=== PATIENT | female | born 1945 | race Caucasian/White ===

== ENCOUNTER 2017-03-07 14:26 | Inpatient (IN) | payer MEDICARE, MEDICAID ==
[2017-03-07 14:39] VITALS: BP 116/86
[2017-03-07] MEDS ORDERED: Sodium Chloride 0.9% 1,000 ML IV ONE ×2 (15:04→15:24)
[2017-03-07] MEDS ORDERED: HYDROmorphone 1 mg/mL 1mL Syr IVP STA (15:05)
--- NOTE | 2017-03-07 15:06 | ED Physician Chart ---
Chief Complaint/HPI - Patient Information Date Seen:: 03/07/17 Time Seen:: 14:42 Chief Complaint:: ABDOMINAL PAIN IN RLQ SINCE LAST NIGHT History of Present Illness:: The patient is unable to recall that the pain started abruptly or gradually last evening. She describes the pain as cramping and gives it a severity of 4/ 10. The pain is worse when she is moved and better when she is lying still. Patient is status post appendectomy. she localizes the pain to the suprapubic and right lower quadrant regions. There is no radiation of the pain into the chest or back. The pain is accompanied by nausea but she has had no episodes of vomiting or diarrhea. Patient denies any fever, chills or diaphoresis. The patient was able to walk with the assistance of a walker up until 3 days ago. Since then. she is currently nonambulatory. She denied any urinary symptoms. NO unusual vaginal bleeding. Allergies:: Allergies Allergy/AdvReac Type Severity Reaction Status Date / Time codeine AdvReac Verified 03/07/17 14:35 Vitals:: Vital Signs - 8 hr 03/07/17 14:38 BP 116/86 Review of Systems - Review of Systems General/Constitutional: No fever, No chills, No diaphoresis, No edema Skin: No skin lesions, No rash Head: No headache, No light-headedness Eyes: No loss of vision, No diplopia ENT: No earache, No sore throat Neck: No neck pain, No stiffness, No mass noted Cardio Vascular: No chest pain, No palpitations, No edema Pulmonary: No SOB, No cough, No sputum, No wheezing, Other (patient states that she has supplemental oxygen at home.) GI: Nausea, No vomiting, No diarrhea, Pain, No constipation, No hematemesis G/U: No dysuria, No frequency, No hematuria General Scrap 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 History of prior IV drug abuse and has been clean for over 20 years.), No Alcohol, Care Facility Surgical History: Appendectomy, other ( the patient had an ectopic with removal of the fallopian tube on the right side.) Family Medical History - Family Member Mother History Unknown: Yes Ethnicity: Non- Hx Family COPD: Yes Sister History Unknown: Yes Ethnicity: Non- Physical Exam - Physical Examination General/Constitutional: Awake, Well-developed, well-nourished, Alert, Non-toxic appearing Other Gen/Cons comments:: Patient was in moderate distress from pain in the lower abdomen which localized to the right side. Patient has been nonambulatory for the past three days. Head: Atraumatic Other Head comments:: No visible or palpable evidence of recent trauma. Eyes: Lids, conjuctiva normal, PERRL, EOMI Other Eyes comments:: Prominent arcus both eyes. Skin: Nl inspection, No rash, No skin lesions, No ecchymosis, No lymphadenopathy ENMT: External ears, nose nl Other ENMT comments:: the patient was missing her lower incisor teeth. No inflammation of the posterior pharynx and normal tonsils. Neck: Nontender, No JVD, No nuchal rigidity, No mass, No stridor Respiratory: Nl effort/Exclusion Other Respiratory comments:: The patient has scattered wheezes and rhonchi. No arousal auscultated. Cardio Vascular: RRR, No murmur, gallop, rubs, NL S1 S2 Other Cardio Vascular comments:: Good pulses in all four extremities. GI: No organomegaly, No hernia, Nondistended, No mass/bruits ( The patient had moderate to severe tenderness in the suprapubic and right lower quadrant region. Positive rebounding guarding. Bowel sounds were decreased but present. The rectal examination was deferred at my discretion.) : No CVA tenderness Extremities: No tenderness or effusion, Full ROM ( are the patient had poor clinical lab specialist and both upper extremities and was unable to lift either leg off the gurney. Sensation was intact to light touch.) Neuro/Psych: Alert/oriented, Normal sensory exam Other Neuro/Psych comments:: Cranial nerves are grossly intact. The patient had generalized weakness with no focal deficits. As mentioned previously, the patient had been nonambulatory for the past three days. Misc: Normal back, No paraspinal tenderness Labs/Radiology/EKG Results - Lab Results Results: Laboratory Tests 03/07/17 03/07/17 03/08/17 15:41 17:28 06:05 WBC 10.2 9.9 RBC 3.87 3.68 L Hgb 12.0 11.5 L Hct 35.2 33.8 L MCV 90.7 91.9 MCH 30.9 31.2 H MCHC Differential 34.0 33.9 RDW 13.1 13.1 Plt Count 254 221 MPV 6.5 7.3 Neutrophils % 76.6 Band Neutrophils % 3 Lymphocytes % 14.7 L Monocytes % 8.0 Eosinophils % 0.4 Basophils % 0.3 Neutrophils (Manual) 55 Lymphocytes 30 Monocytes 12 H Platelet Estimate ADEQUATE ESR Sodium 134 L Potassium 4.7 Chloride 103 Carbon Dioxide 25.5 Anion Gap 10.2 BUN 22 Creatinine 0.8 Est GFR ( Amer) > 60.0 Est GFR (Non-Af Amer) > 60.0 BUN/Creatinine Ratio 27.5 Glucose 128 H Calcium 9.3 Total Bilirubin 0.4 AST 21 ALT 12 Alkaline Phosphatase 99 Total Protein 7.6 Albumin 3.5 L Globulin 4.1 Albumin/Globulin Ratio 0.9 L 03/08/17 03/08/17 06:05 06:05 WBC RBC Hgb Hct MCV MCH MCHC Differential RDW Plt Count MPV Neutrophils % Band Neutrophils % Lymphocytes % Monocytes % Eosinophils % Basophils % Neutrophils (Manual) Lymphocytes Monocytes Platelet Estimate ESR 19 Sodium 134 L Potassium 4.7 Chloride 107 Carbon Dioxide 24.9 Anion Gap 6.8 L BUN 34 H Creatinine 1.3 H Est GFR ( Amer) 52.2 Est GFR (Non-Af Amer) 43.2 BUN/Creatinine Ratio 26.2 Glucose 113 H Calcium 8.8 Total Bilirubin 0.5 AST 18 ALT 8 Alkaline Phosphatase 80 Total Protein 6.3 Albumin 3.0 L Globulin 3.3 Albumin/Globulin Ratio 0.9 L The CBC was unremarkable with no leukocytosis or left shift. The hemoglobin was in the 12 range. There is mild impairment of renal function. Patient had a low albumin to globulin ratio. showed that the patient had a fecal impaction in the SQL region. This explained the right lower quadrant tenderness and pain.CT scan of the abdomen Assessment - Assessment General Assessment: CASE SUMMARY: the 71-year-old female presented with onset of right lower quadrant abdominal pain and generalized weakness. Laboratory studies are essentially unremarkable. A CT scan of the abdomen revealed that the patient had a fecal infection in the cecum. The case was discussed with Dr. Soto and he will admit her for further diagnostic evaluation and treatment as indicated. MDM: DDX FOR RT LOWER ABDOMINAL PAIN: NOT acute Appendicitis based on the patient's history of having had an appendectomy. NOT Diverticulitis based on the CT scan of the abdomen. NOT Mesenteric ischemia based on the CT scan. NOT Aortic aneurysm based on the history, physical examination, and CT results. ED Septic Shock - . Is Septic Shock (SBP<90, OR Lactate>4 mmol\L) present?: No - <6hrs of presentation: Vital Signs: Vital Signs - 8 hr 03/07/17 14:38 BP 116/86 Reassessment (Disposition) - Reassessment Reassessment Condition:: Improved - Diagnosis Diagnosis:: DIAGNOSIS: 1) FECAL IMPACTION OF THE CECUM. 2)COPD 3) Hepatitis C - Aftercare/Follow up Instructions Aftercare/Follow-Up Instructions:: Counseled pt regarding lab results/diagnosis & need follow up - Patient Disposition Discharge/Transfer:: Acute Care w/in this hosp Accepting Physician:: Dr. Sharpe ED Discharge Plan - Patient Disposition Admit/Discharge/Transfer: Acute Care w/in this hosp
[2017-03-07] MEDS ORDERED: HYDROmorphone 1 mg/mL 1mL Syr ONE (15:44)
[2017-03-07 16:06] LABS: ALB/GLOB RATIO 0.9 (1.0-1.8); ALKALINE PHOSPHATASE 99 U/L (34-104); ANION GAP 10.2 (7.0-16.0); BILIRUBIN,TOTAL 0.4 mg/dL (0.3-1.0); BUN - UREA NITROGEN 22 mg/dL (7-25); BUN/CREATININE RATIO 27.5; CALCIUM SERUM 9.3 mg/dL (8.6-10.3); CARBON DIOXIDE 25.5 mEq/L (21.0-31.0); CHLORIDE 103 mEq/L (98-107); CREATININE - SERUM 0.8 mg/dL (0.6-1.2); GLUCOSE 128 mg/dL (70-105); POTASSIUM SERUM 4.7 mEq/L (3.5-5.1); SGOT 21 U/L (13-39); SGPT/ALT 12 U/L (7-52); SODIUM SERUM 134 mEq/L (136-145)
[2017-03-07 17:35] LABS: % BASOPHILS 0.3 % (0.0-2.0); % EOSINOPHILS 0.4 % (0.0-5.0); % LYMPHOCYTES 14.7 % (20.0-50.0); % NEUTROPHILS 76.6 % (40.0-80.0); HEMATOCRIT 35.2 % (35.0-45.0); MEAN CELL VOLUME 90.7 fl (81-100); MEAN CORPUSCULAR HEMOGLOBIN 30.9 pg (27.0-31.0); MEAN PLATELET VOLUME 6.5 fl; NEUTROPHILE ABSOLUTE 7.9 Th/cmm (1.8-8.0); PLATELET COUNT 254 Th/cmm (150-400); RED BLOOD COUNT 3.87 Mil/cmm (3.80-5.20); RED CELL DISTRIBUTION WIDTH 13.1 % (11.5-20.0); WHITE BLOOD COUNT 10.2 Th/cmm (4.8-10.8)
[2017-03-07] MEDS ORDERED: HYDROmorphone 1 mg/mL 1mL Syr IVP PRN (21:17)
[2017-03-07] MEDS ORDERED: D5-0.45NS 1,000 ML IV SCH (21:17)
[2017-03-08 06:28] LABS: HEMATOCRIT 33.8 % (35.0-45.0)
[2017-03-08] MEDS ORDERED: D5-0.9%NS 1,000 ML IV SCH ×2 (06:45→12:32)
[2017-03-08 06:49] LABS: HEMOGLOBIN 11.5 gm/dL (11.7-16.1); MEAN CELL VOLUME 91.9 fl (81-100); MEAN CORPUSCULAR HEMOGLOBIN 31.2 pg (27.0-31.0); MEAN CORPUSCULAR HGB CONC 33.9 pg (28.0-36.0); MEAN PLATELET VOLUME 7.3 fl; PLATELET COUNT 221 Th/cmm (150-400); RED BLOOD COUNT 3.68 Mil/cmm (3.80-5.20); RED CELL DISTRIBUTION WIDTH 13.1 % (11.5-20.0); WHITE BLOOD COUNT 9.9 Th/cmm (4.8-10.8)
[2017-03-08 06:54] LABS: ALB/GLOB RATIO 0.9 (1.0-1.8); ANION GAP 6.8 (7.0-16.0); BILIRUBIN,TOTAL 0.5 mg/dL (0.3-1.0); BUN/CREATININE RATIO 26.2; CALCIUM SERUM 8.8 mg/dL (8.6-10.3); CARBON DIOXIDE 24.9 mEq/L (21.0-31.0); CREATININE - SERUM 1.3 mg/dL (0.6-1.2); POTASSIUM SERUM 4.7 mEq/L (3.5-5.1)
[2017-03-08 07:36] LABS: BAND NEUTROPHILE 3 % (0-10); NEUTROPHILS 55 % (40-80); PLATELET ESTIMATE ADEQUATE (NORMAL); TOTAL CELLS COUNTED 100
[2017-03-08] MEDS ORDERED: Hydrocodone/APAP 5mg/325mg Tab PO PRN (08:21)
--- NOTE | 2017-03-08 09:00 | Diagnostic Imaging Report ---
INDICATION: Abdominal pain FINDINGS: The bowel gas pattern is unremarkable. No abnormal masses or calcifications. IMPRESSION: Unremarkable exam. Fecal loading.
[2017-03-08] MEDS: Lactulose 10 Gm/15 mL 30mL UDC PO SCH ×3 (09:14→20:58)
--- NOTE | 2017-03-08 09:21 | Diagnostic Imaging Report ---
INDICATION: Pain Technique: Serial axial images were performed through the abdomen and pelvis and then reformatted in the coronal plane. CTDI is 10.2mGy. [id number] FINDINGS: There is some parenchymal disease in left lung base. Liver and spleen are normal in size without focal mass. Several nonobstructive right renal calculi are present largest of which measures 4 5-mm. No masses or enlargement of the adrenal glands or pancreas. No biliary dilatation. Gallbladder no stones No distention of small bowel loops. Fecal distention of the cecum. The appendix appears normal. Within the pelvis bladder is smooth walled without stones. No abnormal masses or fluid collections. Bone windows show no lytic or blastic lesions of bone. IMPRESSION: Left lower lobe parenchymal disease. Multiple nonobstructive right renal calculi.
--- NOTE | 2017-03-08 10:55 | History & Physical ---
ADMIT DATE: 03/07/2017 CHIEF COMPLAINT: Right lower quadrant abdominal pain. HISTORY OF PRESENT ILLNESS: This is a 71-year-old female who presents to [facility] ER for right lower quadrant abdominal pain, rating was 4/10, which started the night before last, complaining of suprapubic pain along with right lower quadrant pain, no radiation, but does admit to nausea, no vomiting or diarrhea. No fever or chills. No diaphoresis. PAST MEDICAL HISTORY: Includes COPD, asthma, rheumatoid arthritis, osteoarthritis of the right and left knee, hypertension, schizophrenia, neuropathy, depression and anxiety. While in the ER, the patient had a CT of her abdomen, which revealed fecal impaction at the cecal region. The patient was subsequently admitted for further evaluation and treatment. She was given initially a pain medication in the ER, which helped relieve the pain. Her initial lab work revealed a hemoglobin of 12.0, hematocrit 35.2, platelets normal at 254, white count was normal at 10.2. Chem-7, sodium 134, slightly decreased, potassium 4.7, chloride 103, bicarbonate 25, BUN 22, creatinine 0.8, glucose 128. REVIEW OF SYSTEMS: Essentially negative with the exception of the above complaints. PHYSICAL EXAMINATION: VITAL SIGNS: Temperature 98.2, pulse ____, respiration 18, blood pressure 99/54. GENERAL: This is a 71-year-old female, well developed, well nourished, appears her stated age. HEENT: Normocephalic, atraumatic. Pupils equal, round, reactive to light and accommodation. Extraocular muscles intact. Ears: TMs intact. NECK: Supple. Good range of motion. No thyromegaly, no lymphadenopathy. CARDIOVASCULAR: Regular rate and rhythm. No murmurs, rubs or clicks. LUNGS: Clear to auscultation. No rales, rhonchi or wheezing. ABDOMEN: Right lower quadrant abdominal pain noted. Bowel sounds are decreased. EXTREMITIES: No clubbing, cyanosis or edema. Pedal pulses intact. ASSESSMENT: 1. Abdominal pain. 2. Fecal impaction at the cecum noted on CT scan. 3. Chronic obstructive pulmonary disease. 4. Asthma. 5. Bilateral interstitial lung disease. 6. Rheumatoid arthritis of the right and left knee. 7. Osteoarthritis. 8. Schizophrenia. 9. Depression. 10. Anxiety disorder. PLAN: We will order GI consult with Dr. Houston. Repeat CBC and Chem-7 for tomorrow. The patient was started on stool softeners. We will continue patient n.p.o. for now, IV fluids, D5 normal saline at 75 mL per hour. JOB# [id number]
[2017-03-08] MEDS ORDERED: Sodium Chloride 0.9% 1,000 ML IV SCH ×2 (12:30→20:30)
[2017-03-08] MEDS: Morphine Sulfate 2 mg/mL 1mL Syr IVP PRN (20:55)
[2017-03-08] MEDS ORDERED: Non-Formulary Item 1 EA (Melatonin [Melatonin] 5 MG) PO SCH (21:00)
--- NOTE | 2017-03-09 02:49 | Admit Criteria Form ---
Admit Criteria Forms - Admit Criteria Diagnosis: ABDOMINAL PAIN Clinical Indications for Admission to Inpatient Care (Place 'X' for any and all applicable criteria): Admission is indicated for ANY ONE of the following(1)(2)(3)(4)(5): [X ]I. Inpatient admission required rather than observation care (Also use Abdominal Pain: Observation Care, as appropriate) because of ANY ONE of the following: [ ]a) Severe pain requiring acute inpatient management [ ]b) Identification of etiology/finding that requires inpatient care (eg, aortic dissection, free air) [ ]c) Absent bowel sounds with complete ileus(6) [ ]d) Suspected toxic megacolon [ ]e) Severe electrolyte abnormalities requiring inpatient care [ ]f) High fever or infection requiring inpatient admission as indicated by ANY ONE of following(7)(8): [ ] i) Appropriate outpatient or observational care antimicrobial treatment unavailable, not effective, or not feasible [ ] ii) Documented bacteremia [ ] iii) Temperature > 104.9 degrees F (oral) [ ] iv) T >103.1 F (oral) or < 96.8 F(rectal) that does not respond to all emergency treatment measures [ ]g) Signs of intestinal obstruction [B] [ ]h) Hemodynamic instability [ ]i) IV fluid to replace significant ongoing losses (greater than 3 L/m2 per day) (12)(13) [ ]j) Percutaneous or open drainage (eg, abscess, biliary tract ) procedures [ ]k) Parenteral nutrition regimen that must be implemented on inpatient basis [X ]l) Other condition,treatment or monitoring requiring inpatient admission. [ ]II. Peritoneal signs present [ ]III. Surgery needed that cannot be performed on an ambulatory basis. [ ]IV. Evaluation requires patient to not eat or drink for extended period ( eg, more than 24 hours). [ ]V. Contraindications and/or Inappropriate clinical situations for Observational Care in patients with abdominal pain, when ANY ONE of the following is required: [ ]a) Thorough evaluation is required to prevent catastrophic events due to delays in diagnosing (e.g.Mesenteric ischemia) 1,3 [ ]b) Patient with severe pathology or with chronic symptoms unlikely to improve in the ED stay (3) [X ]. General contraindications and/or Inappropriate clinical situations for Observational Care in patients with abdominal pain, when ANY ONE of the following is required: [X ]a) Prediction of prolongation of LOS based on ANY ONE of the following may be considered as a contraindication for observational care 2, 3, 4, 5, 6, 7, 8, 9, 10, 11 [X ]i) Age > 65 yrs. [ ]ii) Patient arriving by ambulance [ ]iii) Patient with high acuity [ ]iv) Patient requiring vital sign monitoring [ ]v) Patient on IV medication [ ]b) Systolic blood pressures 180mmHg 3,12 [ ]c) Patient with altered mental status including delirium and other alteration of consciousness, (3) [ ]d) Patient whose discharge disposition will be to a [facility] home or rehabilitation home should not be managed in Emergency Department Observation Unit. CMS rule requires 3 days hospital stay before such placement.3,13 [ ]e) Patient with failure to thrive due to broad array of etiologies 3,16,17 [ ]f) Inability to ambulate 3,14 Extended stay beyond goal length of stay may be needed for(2)(3): [ ]a) Persistent abdominal pain with suspected intra-abdominal process [ ]b) Diagnosed condition requiring continued stay (e.g., pancreatitis, complicated diverticulitis) [ ]c) Surgery (e.g., colectomy) The original [email or web address] content created by [employer] has been revised. The portions of the content which have been revised are identified through the use of italic text or in bold, and [facility] has neither reviewed nor approved the modified material.All other unmodified content is copyright [facility]. Please see references footnoted in the original [email or web address] edition 2016 Admit Criteria Met?: Yes
--- NOTE | 2017-03-09 06:21 | Consultation ---
DATE OF CONSULTATION: 03/08/2017 INPATIENT GASTROINTESTINAL CONSULTATION REFERRING PHYSICIAN: Dr. Hua. REASON FOR CONSULTATION: Fecal impaction. HISTORY OF PRESENT ILLNESS: This is a 71-year-old female, who complained of abdominal pain, cramping, and distention. The patient denies having nausea or vomiting. The patient denies having any diarrhea. PAST MEDICAL HISTORY: None. PAST SURGICAL HISTORY: None to add recently. FAMILY HISTORY: Noncontributory. SOCIAL HISTORY: Denies tobacco, alcohol, or IV drug usage. ALLERGIES: CODEINE. CURRENT MEDICATIONS: Mora, Neurontin, Dilaudid, lactulose, Ativan, Cozaar, Remeron, Zofran, Risperdal, Ambien. REVIEW OF SYSTEMS: Ten-point review of system was performed and the pertinent positive was the abdominal distention and pain and constipation. All other systems were otherwise negative. PHYSICAL EXAMINATION: VITAL SIGNS: Temperature 98.7, breathing 19, pulse of 86, blood pressure is 88/54, satting 93%. GENERAL: In no apparent distress. EYES: Anicteric, normal conjunctivae. HEENT: Normocephalic, atraumatic. Moist mucous membranes. NECK: Soft, supple. CHEST: Clear, normal effort. CARDIOVASCULAR: Regular rate and rhythm. ABDOMEN: Distended, soft, mildly tender. LABORATORY DATA: Show white count 9.9, hemoglobin 11.5, platelets of 221. LFTs within normal limits. Preliminary CT scan showed fecal impaction in the cecum and mild diverticulosis. PLAN: 1. Await final CT scan. 2. Continue laxatives. 3. May need a colonoscopy at some point when the patient is cleaned out. Thank you for allowing me to participate. Please call me if you have any questions. JOB# [id number]
[2017-03-09] MEDS: Lactulose 10 Gm/15 mL 30mL UDC PO SCH ×3 (08:15→20:45)
--- NOTE | 2017-03-09 08:56 | Diagnostic Imaging Report ---
KUB History: Constipation Comparison: KUB on 03/08/2017 Findings: Copious stool is seen without significant change since previous KUB on 416 and 17. Distal fecal impaction is noted. IMPRESSION: Copious stool and distal fecal impaction. Overall no significant change since previous KUB on 03/08/2017.
[2017-03-09 11:34] LABS: % EOSINOPHILS 1.9 % (0.0-5.0); % LYMPHOCYTES 13.5 % (20.0-50.0); % MONOCYTES 7.5 % (2.0-10.0); % NEUTROPHILS 77.1 % (40.0-80.0); HEMATOCRIT 34.2 % (35.0-45.0); HEMOGLOBIN 11.6 gm/dL (11.7-16.1); MEAN CELL VOLUME 91.2 fl (81-100); MEAN CORPUSCULAR HEMOGLOBIN 30.8 pg (27.0-31.0); MEAN CORPUSCULAR HGB CONC 33.8 pg (28.0-36.0); MEAN PLATELET VOLUME 7.1 fl; NEUTROPHILE ABSOLUTE 6.6 Th/cmm (1.8-8.0); PLATELET COUNT 194 Th/cmm (150-400); RED BLOOD COUNT 3.75 Mil/cmm (3.80-5.20); RED CELL DISTRIBUTION WIDTH 12.8 % (11.5-20.0); WHITE BLOOD COUNT 8.7 Th/cmm (4.8-10.8)
[2017-03-09 11:45] LABS: ALB/GLOB RATIO 0.9 (1.0-1.8); ALKALINE PHOSPHATASE 75 U/L (34-104); ANION GAP 5.9 (7.0-16.0); BILIRUBIN,TOTAL 0.4 mg/dL (0.3-1.0); BUN - UREA NITROGEN 25 mg/dL (7-25); BUN/CREATININE RATIO 31.3; CALCIUM SERUM 8.9 mg/dL (8.6-10.3); CARBON DIOXIDE 23.4 mEq/L (21.0-31.0); CHLORIDE 112 mEq/L (98-107); CREATININE - SERUM 0.8 mg/dL (0.6-1.2); GLUCOSE 92 mg/dL (70-105); POTASSIUM SERUM 4.3 mEq/L (3.5-5.1); SGOT 21 U/L (13-39); SGPT/ALT 9 U/L (7-52); SODIUM SERUM 137 mEq/L (136-145)
[2017-03-09] MEDS ORDERED: Magnesium Citrate 1.75 GM/300 mL Bottle PO ONE (14:35)
[2017-03-09] MEDS: Morphine Sulfate 2 mg/mL 1mL Syr IVP PRN (17:31)
[2017-03-10] MEDS: Morphine Sulfate 2 mg/mL 1mL Syr IVP PRN ×2 (03:36→09:02)
[2017-03-10 04:09] LABS: HEP B CORE IGM Negative (Negative); HEP C ANTIBODY 1.9 s/co ratio (0.0-0.9)
[2017-03-10 05:43] LABS: % BASOPHILS 2.9 % (0.0-2.0); % EOSINOPHILS 3.1 % (0.0-5.0); % LYMPHOCYTES 28.2 % (20.0-50.0); % NEUTROPHILS 57.8 % (40.0-80.0); HEMOGLOBIN 10.3 gm/dL (11.7-16.1); MEAN CELL VOLUME 91.5 fl (81-100); MEAN CORPUSCULAR HEMOGLOBIN 31.8 pg (27.0-31.0); MEAN CORPUSCULAR HGB CONC 34.8 pg (28.0-36.0); MEAN PLATELET VOLUME 6.6 fl; NEUTROPHILE ABSOLUTE 3.8 Th/cmm (1.8-8.0); RED BLOOD COUNT 3.25 Mil/cmm (3.80-5.20); RED CELL DISTRIBUTION WIDTH 12.8 % (11.5-20.0)
[2017-03-10 05:45] LABS: HEMATOCRIT 29.7 % (35.0-45.0); PLATELET COUNT 239 Th/cmm (150-400); WHITE BLOOD COUNT 6.6 Th/cmm (4.8-10.8)
[2017-03-10 06:13] LABS: ALB/GLOB RATIO 0.9 (1.0-1.8); ALKALINE PHOSPHATASE 65 U/L (34-104); ANION GAP 7.7 (7.0-16.0); BILIRUBIN,TOTAL 0.3 mg/dL (0.3-1.0); BUN - UREA NITROGEN 26 mg/dL (7-25); BUN/CREATININE RATIO 32.5; CALCIUM SERUM 8.4 mg/dL (8.6-10.3); CARBON DIOXIDE 25.2 mEq/L (21.0-31.0); CHLORIDE 111 mEq/L (98-107); CREATININE - SERUM 0.8 mg/dL (0.6-1.2); GLUCOSE 102 mg/dL (70-105); POTASSIUM SERUM 3.9 mEq/L (3.5-5.1); SGOT 18 U/L (13-39); SGPT/ALT 9 U/L (7-52); SODIUM SERUM 140 mEq/L (136-145)
[2017-03-10] MEDS: Lactulose 10 Gm/15 mL 30mL UDC PO SCH ×2 (08:40→13:44)
--- NOTE | 2017-03-11 06:29 | Consultation ---
DATE OF CONSULTATION: 03/10/2017 IDENTIFYING INFORMATION AND HISTORY OF PRESENT ILLNESS: The patient is a 71-year-old female, reason for consult as the patient has a history of schizophrenia, depression, anxiety. The patient herself was somewhat irritable when I talked to her because she did not like being waked up many times. She admits that she has a history of depression, she was a drug user, used cocaine, alcohol, she was a drug addict. She has a history of 2 prior suicide attempts, but she said currently she is okay. She lives at [facility]. She reports she cannot sleep well. She has a chronic insomnia. She reports no current suicidal ideation, homicidal ideation, no hallucination, no paranoia. PAST PSYCHIATRIC HISTORY: The patient reports she has 2 prior suicide attempts by overdose and ____ at this point in time, but currently no suicidal ideation. She denies ever having any hallucination or paranoia. She said she has extensive history of drug, but she is not using drug, did not use cocaine and alcohol. She reports she was a drug addict and that causes her problems. MEDICAL HISTORY: Deferred to the medical doctor. The patient came because of impaction and pain in her abdomen and she was impacted. MEDICATIONS: The patient has been on Risperdal, on Remeron. FAMILY AND SOCIAL HISTORY: The patient report that she is . She has no children. She has college education, worked as a caregiver. She has a sister who has bipolar. She reports no legal problems. No other family history of psychiatric disorder. MENTAL STATUS EXAMINATION: The patient was appropriately dressed. She was somewhat irritable because she is being waked up many times to talk to different people, she was unable to tell me the date, she was somewhat in pain. She report she is feeling okay now. She reports she does not sleep well. Chronic insomnia, no suicidal ideation, no homicidal ideation, no paranoia. She seems to have average intelligence. Her long and short-term memory is intact. Her insight and judgment is fair. IMPRESSION: AXIS I: History of possible bipolar disorder and polysubstance dependence, currently unable to sleep. MEDICAL DIAGNOSIS: Defer to the medical doctor. I would recommend to increase her Remeron to 15 mg at bedtime. The patient need followup with the psychiatrist upon discharge. Thank you very much for allowing me to participate in the care of this most interesting lady. JOB# [id number]
--- NOTE | 2017-03-18 19:17 | Discharge Summary ---
DATE OF DISCHARGE: 03/10/2017 PRELIMINARY DIAGNOSES: 1. Abdominal pain. 2. Fecal impaction. 3. Chronic obstructive pulmonary disease. 4. Asthma. 5. Bilateral interstitial lung disease. 6. Rheumatoid arthritis of the right and left knees. 7. Osteoarthritis. 8. Schizophrenia. 9. Depression. 10. Anxiety disorder. DISCHARGE DIAGNOSES: 1. Abdominal pain secondary to fecal impaction, now resolved. 2. Chronic obstructive pulmonary disease, stable. 3. Asthma. 4. Bilateral interstitial lung disease. 5. Rheumatoid arthritis of the right and left knees. 6. Osteoarthritis. 7. Schizophrenia. 8. Depression. 9. Anxiety disorder. BRIEF HISTORY OF PRESENT ILLNESS: This is a 71-year-old female, who presents to [facility] ER for right lower quadrant abdominal pain, rating was noted to be 4/10, states that the pain started the night before last, complaining of suprapubic pain along with right lower quadrant pain, no radiation. She does admit to nausea. No vomiting or diarrhea. Denies any fevers or chills. While in the ER, the patient had a CT of her abdomen which revealed fecal impaction at the cecal region. The patient was subsequently admitted for further evaluation and treatment. HOSPITAL COURSE: The patient was given stool softeners along with kept on IV fluids, initially was on a liquid diet, had been seen and evaluated by GI. The patient eventually had bowel movement, which resolved the constipation and abdominal pain. She was subsequently discharged in stable condition back to the [facility], was to continue her current medications. [facility]# [id number]
== END 2017-03-10 14:00 | DRG 389 ==
LOC: ER 14:26 → MSI 18:40
PROVIDERS: ADMIT Family Medicine; ATTEND Family Medicine
DX: K56.41 Fecal impaction (principal); J84.9 Interstitial pulmonary disease, unspecified; J44.9 Chronic obstructive pulmonary disease, unspecified; F20.9 Schizophrenia, unspecified; G62.9 Polyneuropathy, unspecified; F19.20 Other psychoactive substance dependence, uncomplicated; M06.9 Rheumatoid arthritis, unspecified; F17.210 Nicotine dependence, cigarettes, uncomplicated; F31.9 Bipolar disorder, unspecified; M17.0 Bilateral primary osteoarthritis of knee; B19.20 Unspecified viral hepatitis C without hepatic coma; Z88.5 Allergy status to narcotic agent; Z90.49 Acquired absence of other specified parts of digestive tract
CPT/HCPCS: 36415-UA; 74000-TC; 80053-TC; 80074-90; 85007-TC; 85025-TC; 85027-TC; 85652-TC; 96374; 96375; J1170; J2270; J2405; J7030; J7042; Z7610